=== PATIENT | female | born 1985 | race Two or more races ===

== ENCOUNTER 2016-05-18 13:28 | Emergency (ER) | payer OTHER ==
[2016-05-18 14:50] LABS: URINE BILIRUBIN NEGATIVE (NEGATIVE); URINE BLOOD 4+ (NEGATIVE); URINE GLUCOSE (UA) NEGATIVE (NEGATIVE); URINE LEUKOCYTE ESTERASE NEGATIVE (NEGATIVE); URINE NITRITE NEGATIVE (NEGATIVE); URINE PROTEIN NEGATIVE (NEGATIVE); URINE UROBILINOGEN NORMAL (0-1 mg/dl)
[2016-05-18 14:53] LABS: HCG,QUALITATIVE URINE NEGATIVE
[2016-05-18 14:54] LABS: URINE APPEARANCE CLEAR; URINE COLOR YELLOW
[2016-05-18 15:10] LABS: URINE BACTERIA 1+; URINE MUCUS 2+
[2016-05-18] MEDS ORDERED: IBUPROFEN 600 MG TABLET ONE ×2 (15:32→15:51)
[2016-05-18] MEDS ORDERED: ACETAMINOPHEN 325 MG TABLET ONE ×2 (15:32→15:51)
--- NOTE | 2016-05-18 16:16 | CT ---
ABD/PELVIS W/O CON COMPARISON: Abdomen 2 views, 04/30/2016 HISTORY: Left flank pain for one month Technique: Using a [employer] [address] scanner, images were obtained from the diaphragm to the floor the pelvis. No intravenous contrast. An automated dose reduction technique was used to minimize patient radiation dose. Dose: CTDIvol (mGy): 9.50 DLP(mGycm): 447.00 FINDINGS: Lung bases: Normal Inferior mediastinum and heart: Normal Liver: Normal Gallbladder: Cholecystectomy. Bile ducts: Normal. Pancreas: Normal Spleen: Normal Adrenal glands: Normal Kidneys: The right kidney, there are scattered 1 to 2 mm calculi. No hydronephrosis. In the left kidney, scattered nonobstructing calculi up to 2 mm. No hydronephrosis. Ureters: Normal Urinary bladder: Normal Uterus and adnexa: Normal Blood vessels: Normal. Lymph nodes: Normal Stomach: Normal Duodenum: Normal Small intestine: Normal Appendix: Normal Colon: Normal Abdominal wall and supporting musculature: Normal Bones: Normal. IMPRESSION: 1. In both kidneys, there are some scattered tiny calculi without obstruction. No hydronephrosis of either kidney. No stone in either ureter. Normal urinary bladder. 2. Cholecystectomy. Report was sent to the emergency department [facility] medical record system 05/18/2016 at 16:18
== END 2016-05-18 16:41 | disposition home or self-care (01) ==
LOC: ED 13:28
DX: R10.12 Left upper quadrant pain (principal); R07.9 Chest pain, unspecified
CPT/HCPCS: 81025; 87086; 81001; 74176; 99283 ×2; 93005; A9270 ×4

== ENCOUNTER 2016-08-02 14:50 | Emergency (ER) | payer OTHER ==
[2016-08-02 15:55] LABS: HCG,QUALITATIVE URINE NEGATIVE
== END 2016-08-02 16:36 | disposition home or self-care (01) ==
LOC: ED 14:50
DX: R11.2 Nausea with vomiting, unspecified (principal); R19.7 Diarrhea, unspecified